=== PATIENT | male | born 1965 | race African-American/Black ===

== ENCOUNTER 2018-08-18 21:36 | Inpatient (IN) | payer MEDICAID, OTHER ==
[~2018-08-18] VITALS: Ht 165.1 cm; Wt 64.0 kg
[~2018-08-18 21:36] MED LIST: ASCO125T PO; ASPI-1159 PO; ATOR-2 PO; BIMA2.5D4 EACHEYE; BRIM5DRO EACHEYE; CLON0.1T14 PO; DIPH25CA83 PO; DOCU250C69 PO; FAMO20TA8 PO; FOLI-43 PO; GABA-531 PO; HYDR-4009 PO; LEVE500T19 PO; MEMA5TAB7 PO; METO25TA6 PO; MIRT15TA6 PO; MULT-1146 PO; ONDA4SOL PO
[2018-08-18] MEDS ORDERED: ACETAMINOPHEN 325MG TABLET PO STA (22:21)
[2018-08-18] MEDS ORDERED: SODIUM CHLORIDE 0.9% 1000ML BAG (SEPSIS BOLUS) IV ONE (22:30)
[2018-08-18] MEDS ORDERED: HYDROMORPHONE HCL/PF 2MG/ML CPJ IV ONE (22:30)
[2018-08-18 23:33] LABS: CHLORIDE 109 mEq/L (98-107); HEMATOCRIT. 22.1 % (42.0-52.0); HEMOGLOBIN. 7.4 g/dL (14.0-18.0); MEAN CORPUSCULAR HEMOGLOBIN 30.3 pg (28.0-32.0); MEAN CORPUSCULAR VOLUME 90.4 fL (80.0-94.0); MEAN PLATELET VOLUME 8.5 fl (7.4-10.4); PLATELET 425 x1000/uL (130-400); RED BLOOD CELL COUNT 2.45 mill/uL (4.7-6.1); RED CELL DISTRIBUTION WIDTH 17.5 % (11.6-14.6)
[2018-08-18 23:40] LABS: CLARITY URINE CLEAR (CLEAR); COLOR URINE DARK YELLOW (YELLOW); KETONES URINE NEGATIVE (NEGATIVE); LEUKOCYTE ESTERASE URINE TRACE (NEGATIVE); NITRITE URINE POSITIVE (NEGATIVE); OCCULT BLOOD URINE NEGATIVE (NEGATIVE); PROTEIN URINE NEGATIVE (NEGATIVE); SPECIFIC GRAVITY URINE 1.014 (1.005-1.030)
[2018-08-18 23:42] LABS: INR 1.1; PROTHROMBIN TIME 11.4 sec (9.1-11.1)
[2018-08-18] MEDS ORDERED: ACETAMINOPHEN 650MG SUPP PR ONE (23:45)
[2018-08-19] VITALS (11 sets, daily range): BP systolic 96–139; BP diastolic 59–79
[2018-08-19 00:07] LABS: PLATELET ESTIMATE NORMAL
[2018-08-19] MEDS ORDERED: VANCOMYCIN 1 G PREMIX 200 ML IV SCH ×3 (00:15→10:00)
[2018-08-19] MEDS ORDERED: PIPERACILLIN SODIUM/TAZOBACTAM 4.5 G in DEXT 5% WATER 100 ML IV SCH (02:00)
[2018-08-19] MEDS ORDERED: IPRATROPIUM/ALBUTEROL 0.5-3(2.5)MG/3ML NEB INH PRN (06:30)
[2018-08-19] MEDS ORDERED: DIPHENHYDRAMINE 50MG/ML VIAL IV PRN (06:30)
[2018-08-19] MEDS ORDERED: MAGNESIUM/ALUMINUM HYDROXIDE/SIMETHICONE 30ML UDC PO PRN (06:30)
[2018-08-19] MEDS ORDERED: LORAZEPAM 2MG/ML CPJ IV PRN (06:30)
[2018-08-19] MEDS ORDERED: GUAIFENESIN 200MG/10ML SUGAR FREE UDC PO PRN (06:30)
[2018-08-19] MEDS ORDERED: ONDANSETRON HCL 4MG/2ML INJ IV PRN (06:30)
[2018-08-19] MEDS ORDERED: NA PHOS,M-B/NA PHOS,DI-BA ENEMA 118ML PR PRN (06:30)
[2018-08-19] MEDS ORDERED: DOCUSATE SODIUM 100MG CAPSULE PO PRN (06:30)
[2018-08-19] MEDS ORDERED: HYDRALAZINE 20MG/ML VIAL IV PRN (06:30)
[2018-08-19] MEDS ORDERED: CLONIDINE 0.1MG TABLET PO PRN (06:30)
[2018-08-19] MEDS ORDERED: VANCOMYCIN 750 MG PREMIX 150 ML IV SCH (08:00)
[2018-08-19] MEDS: DEXT 5%/0.45% NACL 1000ML 1,000 ML IV SCH ×2 (08:22→21:08)
[2018-08-19] MEDS: PIPERACILLIN/TAZ 3.375G PREMIX 50 ML IV SCH ×3 (08:28→21:02)
[2018-08-19] MEDS: HYDROMORPHONE HCL/PF 2MG/ML CPJ IV PRN ×4 (08:31→22:33)
[2018-08-19] MEDS: ENOXAPARIN 40MG/0.4ML SYR SUBCUT SCH (09:00)
[2018-08-19] MEDS: SODIUM CHLORIDE 0.9% INJ 3ML FLUSH IVF SCH ×2 (13:48→21:09)
[2018-08-19] MEDS: VANCOMYCIN 1 G PREMIX 200 ML IV SCH (15:25)
[2018-08-19 15:58] LABS: CREATINE KINASE 260 IU/L (39-308)
[2018-08-19 15:59] LABS: CREATINE KINASE MB FRACTION < 1.0 ng/mL (0.5-3.6)
[2018-08-19] MEDS: HYDROCODONE/ACETAMINOPHEN 10/325MG TABLET PO PRN (21:02)
[2018-08-19 23:58] LABS: CREATINE KINASE 196 IU/L (39-308)
[2018-08-19 23:59] LABS: CREATINE KINASE MB FRACTION < 1.0 ng/mL (0.5-3.6)
[2018-08-20] VITALS (19 sets, daily range): BP systolic 86–125; BP diastolic 48–84
[2018-08-20] MEDS: VANCOMYCIN 1 G PREMIX 200 ML IV SCH ×3 (00:24→21:14)
[2018-08-20] MEDS: ACETAMINOPHEN 325MG TABLET PO PRN ×2 (01:13→13:40)
[2018-08-20] MEDS: PIPERACILLIN/TAZ 3.375G PREMIX 50 ML IV SCH ×4 (02:57→20:25)
[2018-08-20] MEDS: SODIUM CHLORIDE 0.9% INJ 3ML FLUSH IVF SCH ×3 (06:00→22:12)
[2018-08-20] MEDS: DEXT 5%/0.45% NACL 1000ML 1,000 ML IV SCH ×2 (07:10→08:04)
[2018-08-20 07:22] LABS: MEAN CORPUSCULAR HEMOGLOBIN 29.9 pg (28.0-32.0); MEAN CORPUSCULAR VOLUME 89.5 fL (80.0-94.0); MEAN PLATELET VOLUME 8.2 fl (7.4-10.4); PLATELET 392 x1000/uL (130-400); RED BLOOD CELL COUNT 2.08 mill/uL (4.7-6.1); RED CELL DISTRIBUTION WIDTH 17.1 % (11.6-14.6)
[2018-08-20 07:44] LABS: CHLORIDE 114 mEq/L (98-107); HEMATOCRIT. 18.7 % (42.0-52.0); HEMOGLOBIN. 6.2 g/dL (14.0-18.0)
[2018-08-20 07:50] LABS: VANCOMYCIN TROUGH 24.5 ug/mL (5.0-10.0)
[2018-08-20 07:52] LABS: HDL CHOLESTEROL 9 mg/dL (40-59); LDL CHOLESTEROL 30 mg/dL (5-100)
[2018-08-20 07:55] LABS: T4 FREE 1.33 ng/dL (0.76-1.46)
[2018-08-20] MEDS: ENOXAPARIN 40MG/0.4ML SYR SUBCUT SCH (08:10)
[2018-08-20] MEDS: HYDROMORPHONE HCL/PF 2MG/ML CPJ IV PRN ×3 (10:33→19:13)
[2018-08-20 11:01] LABS: NUCLEATED RED BLOOD CELLS 1 /100 WBC
[2018-08-20 11:03] LABS: PLATELET ESTIMATE NORMAL
[2018-08-20 16:04] LABS: HEMOGLOBIN 6.6 g/dL (14.0-18.0)
[2018-08-20 16:05] LABS: HEMATOCRIT 19.4 % (42.0-52.0)
[2018-08-20 16:52] LABS: TOTAL IRON BINDING CAPACITY 166 ug/dL (250-450)
[2018-08-20 17:10] LABS: FOLIC ACID (FOLATE) SERUM >20 ng/mL ng/mL (>5.38)
[2018-08-20 17:21] LABS: VITAMIN B12 SERUM 416 pg/mL (211-911)
[2018-08-20 19:50] LABS: FERRITIN 2471 ng/mL (22-322)
[2018-08-20] MEDS: HYDROCODONE/ACETAMINOPHEN 10/325MG TABLET PO PRN (21:45)
[2018-08-21] VITALS (15 sets, daily range): BP systolic 102–137; BP diastolic 60–82
[2018-08-21 00:14] LABS: HEMOGLOBIN 8.5 g/dL (14.0-18.0)
[2018-08-21] MEDS: PIPERACILLIN/TAZ 3.375G PREMIX 50 ML IV SCH ×3 (01:22→15:14)
[2018-08-21] MEDS: HYDROMORPHONE HCL/PF 2MG/ML CPJ IV PRN ×4 (01:54→22:54)
[2018-08-21] MEDS: DEXT 5%/0.45% NACL 1000ML 1,000 ML IV SCH ×4 (03:30→22:24)
[2018-08-21] MEDS: SODIUM CHLORIDE 0.9% INJ 3ML FLUSH IVF SCH ×3 (05:09→21:41)
[2018-08-21 08:31] LABS: INR 1.1; PARTIAL THROMBOPLASTIN TIME 27.3 sec (23.4-31.0); PROTHROMBIN TIME 11.2 sec (9.1-11.1)
[2018-08-21] MEDS: SILVER SULFADIAZINE 1% CREAM 25GM TOP SCH (08:38)
[2018-08-21 08:48] LABS: HEMATOCRIT. 21.9 % (42.0-52.0); HEMOGLOBIN. 7.7 g/dL (14.0-18.0); MEAN CORPUSCULAR HEMOGLOBIN 30.5 pg (28.0-32.0); MEAN CORPUSCULAR VOLUME 86.8 fL (80.0-94.0); PLATELET 425 x1000/uL (130-400); RED BLOOD CELL COUNT 2.52 mill/uL (4.7-6.1); RED CELL DISTRIBUTION WIDTH 17.6 % (11.6-14.6)
[2018-08-21] MEDS: VANCOMYCIN 1 G PREMIX 200 ML IV SCH (08:51)
[2018-08-21 09:15] LABS: CHLORIDE 110 mEq/L (98-107)
[2018-08-21] MEDS ORDERED: IOHEXOL-300 100 ML BOTTLE ONE (10:03)
[2018-08-21] MEDS ORDERED: SIMETHICONE 40 MG/0.6 ML 30ML ONE (10:03)
[2018-08-21] MEDS ORDERED: PROPOFOL 200MG/20ML VIAL IV ONE (11:45)
[2018-08-21] MEDS ORDERED: LIDOCAINE HCL/PF 1% 10 MG/ML 5ML VIAL ONE (11:46)
[2018-08-21] MEDS ORDERED: SUCCINYLCHOLINE CHLORIDE 200MG/10ML IV ONE (11:50)
[2018-08-21] MEDS ORDERED: FENTANYL CITRATE/PF 50MCG/ML 2ML VIAL ONE (12:20)
[2018-08-21] MEDS ORDERED: ONDANSETRON HCL 4MG/2ML INJ ONE (12:55)
[2018-08-21 12:57] LABS: NUCLEATED RED BLOOD CELLS 1 /100 WBC; PLATELET ESTIMATE INCREASED
[2018-08-21] MEDS ORDERED: POTASSIUM CHLORIDE INJ 40 MEQ in DEXT 5% WATER 250 ML IV NR ×2 (13:30→17:30)
[2018-08-21] MEDS: MEROPENEM 1000MG in NORMAL SALINE 100ML IV SCH ×2 (17:16→22:57)
[2018-08-22] VITALS (8 sets, daily range): BP systolic 92–148; BP diastolic 60–83
[2018-08-22] MEDS: HYDROCODONE/ACETAMINOPHEN 10/325MG TABLET PO PRN (05:06)
[2018-08-22] MEDS: SODIUM CHLORIDE 0.9% INJ 3ML FLUSH IVF SCH ×2 (06:00→13:36)
[2018-08-22] MEDS: DEXT 5%/0.45% NACL 1000ML 1,000 ML IV SCH ×2 (06:24→13:36)
[2018-08-22] MEDS: MEROPENEM 1000MG in NORMAL SALINE 100ML IV SCH (09:04)
[2018-08-22] MEDS: SILVER SULFADIAZINE 1% CREAM 25GM TOP SCH (09:05)
[2018-08-22 11:37] LABS: CHLORIDE 111 mEq/L (98-107)
[2018-08-22] MEDS: HYDROMORPHONE HCL/PF 2MG/ML CPJ IV PRN (13:35)
[2018-08-22] MEDS ORDERED: POTASSIUM CHLORIDE 20MEQ TABLET SR PO SCH (14:00)
== END 2018-08-22 17:00 | DRG 720 ==
LOC: ER 21:36 → 5EST 08-19 00:27 → EDBEDREQTM 08-19 00:29 → EDBEDREQ 08-19 00:29 → EDBEDREQDT 08-19 00:29 → ENRESERV 08-19 00:54
PROVIDERS: ADMIT Internal Medicine; ATTEND Internal Medicine
PROC: 30233N1 Transfusion of Nonautologous Red Blood Cells into Peripheral Vein, Percutaneous Approach (ICD-10-PCS; 2018-08-20)
PROC: 0F798ZZ Dilation of Common Bile Duct, Via Natural or Artificial Opening Endoscopic (ICD-10-PCS; principal; 2018-08-21)
PROC: BF101ZZ Fluoroscopy of Bile Ducts using Low Osmolar Contrast (ICD-10-PCS; 2018-08-21)
DX: A41.9 Sepsis, unspecified organism (principal); G93.41 Metabolic encephalopathy; E41 Nutritional marasmus; D57.00 Hb-SS disease with crisis, unspecified; I11.0 Hypertensive heart disease with heart failure; I50.9 Heart failure, unspecified; E46 Unspecified protein-calorie malnutrition; E83.52 Hypercalcemia; I48.91 Unspecified atrial fibrillation; K80.50 Calculus of bile duct without cholangitis or cholecystitis without obstruction; E11.9 Type 2 diabetes mellitus without complications; N39.0 Urinary tract infection, site not specified; E78.00 Pure hypercholesterolemia, unspecified; E86.0 Dehydration; H40.9 Unspecified glaucoma; Z79.82 Long term (current) use of aspirin; Z85.830 Personal history of malignant neoplasm of bone; Z86.73 Personal history of transient ischemic attack (TIA), and cerebral infarction without residual deficits; Z99.3 Dependence on wheelchair; Z90.49 Acquired absence of other specified parts of digestive tract; Z68.23 Body mass index [BMI] 23.0-23.9, adult
CPT/HCPCS: 36415; 51702; 71045; 74176; 74181; 74330; 80048; 80061; 80076; 80202; 82248; 82270; 82550; 82553; 82607; 82728; 82746; 83540; 83550; 83605; 84145; 84439; 84443; 84484; 85014; 85018; 85660; 86850; 86900; 86920; 87077; 87186; 93005; 96365; 96366; 96368; 96375; 99291; C1726; C1769; C1893; J0330; J1170; J2060; J2185; J2405; J2543; J2704; J3010; J3370; J3480; J3490; J7030; J7040; J7060; P9016; Q9967; A4315